=== PATIENT | male | born 1995 | race Caucasian/White ===

== ENCOUNTER 2018-07-07 15:26 | Emergency (ER) | payer OTHER ==
--- NOTE | 2018-07-07 16:36 | EDPHY ---
H & P Time Seen by Provider: 07/07/18 16:35 HPI/ROS: CHIEF COMPLAINT: Chest pain HISTORY OF PRESENT ILLNESS: 22-year-old man woke up today with bilateral chest pain which is"all over"in like a tightness. It radiates especially to the back left part of his chest. Started at 11:00 a.m. When he woke up. Worse with deep breath, not exertional. Not associated with coughing or wheezing. He does have a little bit of neck soreness. No abdominal symptoms, not better worse with eating. No cough or hemoptysis or leg swelling. REVIEW OF SYSTEMS: Eye: No eye symptoms ENT: no sore throat Cardiac: HPI no palpitations Pulmonary: Not short of breath Abdomen: no vomiting, diarrhea, abdominal pain Musculoskeletal: No leg swelling Skin: no rash Neuro: no headache Constitutional: no fever : no urinary symptoms A comprehensive 10 point review of systems is otherwise negative aside from elements mentioned in the history of present illness. PAST MEDICAL HISTORY: Asthma, has not needed to see a doctor since he was 12 years old Family history: Negative for venous thromboembolism or premature coronary disease Social history: Recent 9 hr car trip from [place] because of weather. General Appearance: Alert and conversant, cooperative. Eyes: No scleral icterus. ENT, Mouth: Normal mucous membranes. Respiratory: Normal respiratory effort, breath sounds equal, lungs are clear to auscultation. No wheezing rhonchi or rales. Cardiovascular: Regular rate and rhythm. No murmur. Gastrointestinal: Abdomen is soft and non tender. Neurological: Alert, face symmetric, normal motor and sensory in extremities. Skin: Warm and dry, no rashes. Musculoskeletal: No peripheral edema. No calf tenderness. Psychiatric: Not agitated. Emergency Department course/MDM: EKG normal, ACS would be unlikely. Chest x-ray to evaluate, D-dimer performed because of recent prolonged car travel. Differential diagnosis considered for chest pain including but not limited to myocardial ischemia, aortic dissection, pericarditis, pulmonary embolus, chest wall pain, pleural inflammation and pulmonary infectious causes. 12-lead EKG interpreted by me; official reading is in computer system. My interpretation is sinus rhythm rate 89 with no ischemic changes and normal intervals. 1658: Chest x-ray normal personally interpreted. Discharge if D-dimer negative; reviewed at 5:23 p.m. Is negative, more likely muscular or inflammatory. Results discussed with patient, father and his cousin. Smoking Status: Current some day smoker Constitutional: Initial Vital Signs Temperature (C) 37.3 C 07/07/18 15:40 Heart Rate 86 07/07/18 15:40 Respiratory Rate 16 07/07/18 15:40 Blood Pressure 122/73 H 07/07/18 15:40 O2 Sat (%) 97 07/07/18 15:40 O2 Delivery Mode Room Air Allergies/Adverse Reactions: No Known Allergies Allergy (Unverified 07/07/18 15:40) Home Medications: Medication Instructions Recorded No Medications [NO HOME 1 ea [facility] [place] MEDICATIONS] Medical Decision Making - Diagnostics Imaging Results: Imaging Impressions Chest X-Ray 07/07/18 16:42 Impression: No acute findings in the chest. Imaging: I viewed and interpreted images myself - Data Points Laboratory Results: Laboratory Results 07/07/18 16:48 07/07/18 16:48 07/07/18 07/07/18 07/07/18 16:48 16:48 16:48 WBC 7.84 10^3/uL 10^3/uL (3.80-9.50) RBC 5.48 10^6/uL 10^6/uL (4.40-6.38) Hgb 17.4 g/dL g/dL (13.7-17.5) Hct 49.4 % % (40.0-51.0) MCV 90.1 fL fL (81.5-99.8) MCH 31.8 pg pg (27.9-34.1) MCHC 35.2 g/dL g/dL (32.4-36.7) RDW 12.1 % % (11.5-15.2) Plt Count 232 10^3/uL 10^3/uL (150-400) MPV 9.5 fL fL (8.7-11.7) Neut % (Auto) 78.4 % H % (39.3-74.2) Lymph % (Auto) 11.5 % L % (15.0-45.0) Tyler % (Auto) 9.2 % % (4.5-13.0) Eos % (Auto) 0.0 % L % (0.6-7.6) Baso % (Auto) 0.5 % % (0.3-1.7) Nucleat RBC Rel Count 0.0 % % (0.0-0.2) Absolute Neuts (auto) 6.15 10^3/uL 10^3/uL (1.70-6.50) Absolute Lymphs (auto) 0.90 10^3/uL L 10^3/uL (1.00-3.00) Absolute Monos (auto) 0.72 10^3/uL 10^3/uL (0.30-0.80) Absolute Eos (auto) 0.00 10^3/uL L 10^3/uL (0.03-0.40) Absolute Basos (auto) 0.04 10^3/uL 10^3/uL (0.02-0.10) Absolute Nucleated RBC 0.00 10^3/uL 10^3/uL (0-0.01) Immature Gran % 0.4 % % (0.0-1.1) Immature Gran # 0.03 10^3/uL 10^3/uL (0.00-0.10) D-Dimer < 0.27 ug/mLFEU ug/mLFEU (0.00-0.50) Sodium 139 mEq/L mEq/L (135-145) Potassium 4.2 mEq/L mEq/L (3.3-5.0) Chloride 101 mEq/L mEq/L (97-110) Carbon Dioxide 25 mEq/l mEq/l (22-31) Anion Gap 13 mEq/L mEq/L (6-14) BUN 15 mg/dL mg/dL (7-23) Creatinine 1.0 mg/dL mg/dL (0.7-1.3) Estimated GFR > 60 Glucose 93 mg/dL mg/dL (70-100) Calcium 10.1 mg/dL mg/dL (8.5-10.4) Medications Given: Discontinued Medications Ibuprofen (Motrin) 600 mg PO EDNOW ONE Stop: 07/07/18 16:59 Last Admin: 07/07/18 17:15 Dose: 600 mg Departure - Departure Disposition: Home, Routine, Self-Care Clinical Impression: Chest pain Qualifiers: Chest pain type: unspecified Qualified Code(s): R07.9 - Chest pain, unspecified Condition: Good Instructions: Chest Pain (ED) Referrals: [facility] [Clinic] - As per Instructions
--- NOTE | 2018-07-07 16:45 | CPEKG ---
Test Reason : OPEN Blood Pressure : / mmHG Vent. Rate : 089 BPM Atrial Rate : 089 BPM P-R Int : 145 ms QRS Dur : 087 ms QT Int : 349 ms P-R-T Axes : 074 064 019 degrees QTc Int : 425 ms Sinus rhythm Confirmed by Greg Cruz ([id number]) on 07/07/2018 4:44:45 PM Referred By: Confirmed By:Greg Cruz
[2018-07-07] MEDS ORDERED: IBUPROFEN 600 MG TAB PO ONE (16:58)
[2018-07-07 17:15] LABS: PLATELET COUNT 232 10^3/uL (150-400)
[2018-07-07 17:35] VITALS: BP 134/77
== END 2018-07-07 17:32 | disposition home or self-care (01) ==
DX: R07.9 Chest pain, unspecified (principal); F17.200 Nicotine dependence, unspecified, uncomplicated

== ENCOUNTER → 2019-02-05 | Outpatient (CLI) | payer OTHER | LOC: BMCIMAGING 14:18 ==